=== PATIENT | female | born 1970 | race Asian ===

== ENCOUNTER → 2018-06-03 | Outpatient (CLI) | payer BC ==
[~2018-06-03] MED LIST: BARIUM SULFATE 340 GM SUSPENSION. PO ONE; BARIUM SULFATE 60% 355 ML SUSP PO ONE; SIMETHICONE/SOD BICARB/CITRIC ACID PACKET. PO ONE
--- NOTE | 2018-06-03 09:03 | RAD ---
Esophagram, 06/03/2018: History: Dysphasia The study was performed utilizing high density and thin liquid barium. 2.9 minutes of fluoroscopy time was utilized. 7 static and dynamic fluoroscopic sequences were recorded. The patient demonstrated intermittent piecemeal swallowing. This may have been related to the large size of the ingested bolus. There is no obstruction to flow of the contrast through the cervical or thoracic esophagus. No laryngeal penetration or aspiration was observed. In the recumbent position there was mildly decreased peristalsis in the thoracic esophagus with stasis of some of the contrast. There was minimal associated transient backflow of contrast from the thoracic esophagus into the cervical esophagus. No hiatal hernia or gastroesophageal reflux was demonstrated. IMPRESSION: 1. Piecemeal swallowing. 2. Mildly decreased peristalsis in the thoracic esophagus. 2. The esophagus is otherwise unremarkable.
== END | disposition home or self-care (01) ==
LOC: RAD 07:45
PROVIDERS: ATTEND Family Medicine
DX: K22.4 Dyskinesia of esophagus (principal); R13.12 Dysphagia, oropharyngeal phase
CPT/HCPCS: 74220